=== PATIENT | female | born 1985 | race African-American/Black ===

== ENCOUNTER 2020-08-28 12:46 | Outpatient (CLI) | payer MEDICAID, SELFPAY ==
--- NOTE | ~2020-08-28 | US_ITS ---
EXAMINATION: US breast BI limited HISTORY: Bilateral nipple discharge and palpable lump in the lower inner right breast with subjectiv e change with menstrual cycle TECHNIQUE: Limited bilateral breast ultrasound was performed. FINDINGS: No discrete mass is identified in the right breast at the site of the palpable abnormality. Targeted ultrasound of the subareolar breasts does not demonstrate any correlate for the patient's b ilateral nipple discharge. IMPRESSION: 1. No definite mass identified for the patient's reported right breast lump. Recommend continued clin ical follow-up and targeted ultrasound in six months with scan of the corresponding region in the lef t breast as well to evaluate for any asymmetry. 2. No specific sonographic correlate is identified for the patient's nipple discharge. Further evalua tion at this time should be based on clinical assessment. Continued follow-up physical examination is recommended. BI-RADS category 3, probably benign findings. Reviewed, dictated and finalized at location A. IMPRESSION: 1. No definite mass identified for the patient's reported right breast lump. Re commend continued clinical follow-up and targeted ultrasound in six months with scan of the corresponding region in the left breast as well to evaluate for an y asymmetry. 2. No specific sonographic correlate is identified for the patient's nipple dis charge. Further evaluation at this time should be based on clinical assessment. Continued follow-up physical examination is recommended. BI-RADS category 3, probably benign findings.
== END 2020-08-28 12:47 | disposition home or self-care (01) ==
PROVIDERS: PCP Internal Medicine; Visit Provider Obstetrics & Gynecology Gynecology
DX: N63.14 Unspecified lump in the right breast, lower inner quadrant (principal); N64.52 Nipple discharge
CPT/HCPCS: 76642

== ENCOUNTER 2021-01-21 11:26 | Outpatient (CLI) | payer OTHER, SELFPAY ==
[2021-01-21 13:25] LABS: Free T4 Free Thyroxine 1.16 ng/mL (0.78-2.19)
[2021-01-24 08:00] LABS: Prolactin 6.1 ng/mL (***)
== END 2021-01-21 11:27 | disposition home or self-care (01) ==
PROVIDERS: PCP Internal Medicine; Visit Provider Obstetrics & Gynecology
DX: N64.52 Nipple discharge (principal)
CPT/HCPCS: 36415; 84146; 84439; 84443

== ENCOUNTER 2021-05-16 16:48 | Emergency (ER) | payer OTHER, SELFPAY ==
[2021-05-16 16:57] VITALS: BP 134/80; PULSE 95; RESP 16; TEMP 36.7; O2SAT 100
--- NOTE | 2021-05-16 16:59 | ED.WOUNDLAC ---
HPI - Wound/Laceration General Chief Complaint: Wound/Laceration Stated Complaint: Laceration on finger Time Seen by Provider: 05/16/21 17:06 Source: patient and RN notes reviewed Mode of arrival: ambulatory Limitations: no limitations History of Present Illness HPI narrative: 36-year-old female presents with multiple concerns. She reports she has a cut to the third digit of the left hand near the fingernail that she sustained this morning on a fan in her room. In a separate complaint she reports foul-smelling cloudy urine and is concern for urinary tract infection. She reports she is currently being treated for bacterial vaginosis with Flagyl. She reports pain to the distal tip of the third digit of left hand, denies redness, bruising, swelling, musculoskeletal pain. She denies nausea, vomiting, back pain, urine frequency, urine urgency, dysuria, fever. Related Data Home Medications Medication Instructions Recorded Confirmed Flagyl 05/16/21 Allergies Allergy/AdvReac Type Severity Reaction Status Date / Time No Known Allergies Allergy Unknown Verified 01/21/21 11:05 Review of Systems Review of Systems: Narrative: CONSTITUTIONAL: Denies malaise, chills, sweats, or fever. CARDIOVASCULAR: Denies chest pain, palpitations, or edema. RESPIRATORY: Denies cough or dyspnea. GASTROINTESTINAL: Denies abdominal pain, nausea, vomiting, diarrhea GENITOURINARY: Denies dysuria frequency, urgency or hematuria. Reports foul-smelling dark-colored cloudy urine SKIN: Reports laceration to the distal third digit of the left hand MUSCULOSKELETAL: Denies back pain or myalgia. NEUROLOGIC: Denies numbness, weakness All systems reviewed & are unremarkable except as noted in HPI and below PMFSH Past Medical History Medical History Anxiety Depression Migraines Family History Family History Mother Hypertension Father Hypertension Social History Social History Smoking status: Current some day smoker Alcohol intake: current Drinks per week: 3 Comments At time of signature, agree with nursing past medical, surgical, social and family history. There is no relevant family history pertinent to the presenting complaint Exam Narrative: Exam Narrative: GENERAL: Well-appearing, well-nourished, and in no acute distress. HEAD: Normocephalic EYES: PERRLA, conjunctivae clear NECK: Supple. CHEST: Speaks in full sentences. No respiratory distress. HEART: Regular rate and rhythm. Normal and equal peripheral pulses. EXTREMITIES: Third digit of left hand has normal strength and sensation. 5/5 strength with digit flexion, extension. Range of motion normal. No clubbing, cyanosis, or edema noted. Normal digital cascade with flexion of fingers, median, ulnar and radial nerve intact. Normal sensation of each side of finger. Can perform 'okay' sign, 'cross over finger test of index and middle fingers' and 'thumbs up' sign. No scissoring. Normal thumb opposition. Good capillary refill and radial pulse. Distal capillary refill less than 3 seconds. SKIN: Warn, dry, intact, pink. No rash. 1 cm superficial laceration noted distal tip of the digit of left hand not involving the nail bed, no active bleeding, no surrounding erythema, induration, drainage NEURO: Alert and oriented x3. PSYCH: Normal mood and affect Course Course Emergency Course: Patient is aware of diagnosis, understands and agrees to treatment plan. Anticipatory guidance given. Patient agrees to follow-up as directed and is aware of reasons to seek care at the emergency department. Portions of this record may have been created with voice recognition software Vital Signs Vital signs: Vital Signs Temperature 98.1 F 05/16/21 16:57 Pulse Rate 95 05/16/21 16:57 Respiratory Rate 16 05/16/21 16:57 Blood Pressure
--- NOTE | 2021-05-16 17:16 | PC.NURSE ---
in br to obtain ua spec.
== END 2021-05-16 17:30 | disposition home or self-care (01) ==
PROVIDERS: Emergency Provider Nurse Practitioner
DX: S61.213A Laceration without foreign body of left middle finger without damage to nail, initial encounter (principal); W45.8XXA Other foreign body or object entering through skin, initial encounter; R82.90 Unspecified abnormal findings in urine; F17.200 Nicotine dependence, unspecified, uncomplicated
CPT/HCPCS: 12001; 81003; 87077; 87086; 87088; 87186; 99213; G0463

== ENCOUNTER 2021-08-05 13:19 | Emergency (ER) | payer OTHER, SELFPAY ==
[2021-08-05 13:53] VITALS: BP 119/79; PULSE 101; RESP 18; TEMP 36.9; O2SAT 100
--- NOTE | 2021-08-05 15:18 | ED.URI ---
HPI - URI/Sore Throat General Chief Complaint: Upper Respiratory Infection Stated Complaint: neck pain/sneezing/left eye pain Time Seen by Provider: 08/05/21 15:18 Source: patient and RN notes reviewed Mode of arrival: ambulatory Limitations: no limitations History of Present Illness HPI Narrative: 36-year-old female presents with 2-day history of body aches, rhinorrhea, eyes watering, sinus congestion, sinus pressure, eye pressure, diarrhea, hot and cold flashes, upset stomach. She denies known sick contacts, has not been vaccinated for Covid. She denies [id number] intervention. She denies cough or shortness of breath. MD elicited complaint: rhinorrhea Related Data Home Medications Medication Instructions Recorded Confirmed multivitamin 1 tablet PO DAILY 07/15/21 Allergies Allergy/AdvReac Type Severity Reaction Status Date / Time No Known Allergies Allergy Unknown Verified 08/05/21 14:39 Review of Systems Review of Systems: CONSTITUTIONAL: Reports malaise, chills, sweats, or fever. EYES: Denies visual changes, redness. Reports watery discharge. ENT: Reports rhinorrhea, congestion, sinus pain. Denies otalgia and sore throat. CARDIOVASCULAR: Denies chest pain, palpitations, or edema. RESPIRATORY: Denies cough or dyspnea. GASTROINTESTINAL: Denies abdominal pain, nausea, vomiting. Reports upset stomach and diarrhea SKIN: Denies rash or itching. MUSCULOSKELETAL: Reports myalgia. NEUROLOGIC: Reports headache. All systems reviewed & are unremarkable except as noted in HPI and below PMFSH Past Medical History Medical History Anxiety Depression Migraines Family History Family History Mother Hypertension Father Hypertension Social History Social History Smoking status: Current some day smoker Alcohol intake: current Drinks per week: 3 Comments At time of signature, agree with nursing past medical, surgical, social and family history. There is no relevant family history pertinent to the presenting complaint Exam Narrative: GENERAL: <del>Nontoxic</del>-appearing, well-nourished, and in no acute distress. HEAD: Normocephalic EYES: PERRLA, conjunctivae clear ENT: Nares clear, clear discharge. Mucous membranes moist. TM pearly keen with dull light reflex bilaterally; no tragal tenderness. Oropharynx not erythematous without lesions. Tonsils not enlarged and without exudate, no drooling, no hoarseness, no trismus, uvula midline. NECK: Supple. No lymphadenopathy CHEST: Clear to auscultation, breath sounds equal. No wheezing, rhonchi, rales, or stridor. No respiratory distress, speaks in full sentences. HEART: Regular rate and rhythm. No murmur heard. SKIN: Warm, dry, no rash. NEURO: Alert and oriented x3. PSYCH: Normal mood and affect Course Course Emergency Course: Patient is aware of diagnosis, understands and agrees to treatment plan. Anticipatory guidance given. Patient agrees to follow-up as directed and is aware of reasons to seek care at the emergency department. Portions of this record may have been created with voice recognition software Vital Signs Vital signs: Vital Signs Temperature 98.4 F 08/05/21 13:53 Pulse Rate 101 H 08/05/21 13:53 Respiratory Rate 18 08/05/21 13:53 Blood Pressure 119/79 08/05/21 13:53 Pulse Oximetry 100 08/05/21 13:53 Temperature 98.4 F 08/05/21 13:53 Pulse Rate 101 H 08/05/21 13:53 Respiratory Rate 18 08/05/21 13:53 Blood Pressure 119/79 08/05/21 13:53 Pulse Oximetry 100 08/05/21 13:53 Reviewed. MDM - URI/Sore Throat MDM Narrative Medical decision making narrative: Differential diagnosis considered: Guillen virus, strep pharyngitis, allergic rhinitis, upper respiratory tract infection, sinusitis, rhinosinusitis, nasopharyngitis. viral pharyngitis, otitis me
[2021-08-06 20:25] LABS: SARS-CoV-2 RNA PCR Negative
== END 2021-08-05 15:30 | disposition home or self-care (01) ==
PROVIDERS: Emergency Provider Nurse Practitioner
DX: B34.9 Viral infection, unspecified (principal); Z20.822 Contact with and (suspected) exposure to COVID-19; F17.200 Nicotine dependence, unspecified, uncomplicated
CPT/HCPCS: 87426; 99213; C9803; G0463; U0003; U0005

== ENCOUNTER → 2021-11-12 12:41 | Outpatient (CLI) | payer OTHER, SELFPAY ==
--- NOTE | ~2021-11-12 | XR_ITS ---
EXAMINATION: XR chest 2V 11/12/2021 13:03 INDICATION: Dyspnea. PROCEDURE: 2 view chest COMPARISON: 01/09/2019 FINDINGS: The lungs are clear. The cardiomediastinal silhouette is within normal limits. There are no pleural effusions. There is no pneumothorax suspected. IMPRESSION: 1: NO ACUTE CARDIOPULMONARY DISEASE. Reviewed, dictated and finalized at location A. ATION RESEARCH ANALYST
== END ==
PROVIDERS: PCP Emergency Medicine; Visit Provider Emergency Medicine
DX: F17.290 Nicotine dependence, other tobacco product, uncomplicated (principal)
CPT/HCPCS: 71046

== ENCOUNTER 2021-11-24 09:25 | Emergency (ER) | payer OTHER, SELFPAY ==
[2021-11-24 09:32] VITALS: BP 137/85; PULSE 93; RESP 16; TEMP 38.2; O2SAT 100
--- NOTE | 2021-11-24 10:03 | ED.URI ---
HPI - URI/Sore Throat General Chief Complaint: Upper Respiratory Infection Stated Complaint: Flu Time Seen by Provider: 11/24/21 10:03 Source: patient Mode of arrival: ambulatory Limitations: no limitations History of Present Illness HPI Narrative: Cynthia Paz is a 36 yo female with flu-like symptoms x 24 hours. has a low grade fever, muscle aches and pain since yesterday. Had a positive home Covid test last night which she neglected to tell staff or nurse Related Data Allergies Allergy/AdvReac Type Severity Reaction Status Date / Time No Known Allergies Allergy Unknown Verified 11/24/21 10:01 Review of Systems Review of Systems: CONSTITUTIONAL: Denies fever, chills, sweats. EYES: Denies visual changes, redness, discharge. ENT: Denies rhinorrhea, has congestion, sore throat, otalgia. CARDIOVASCULAR: Denies chest pain, palpitations, edema. RESPIRATORY: Denies dyspnea, wheezing, cough GASTROINTESTINAL: Denies abdominal pain, nausea, vomiting, diarrhea. GENITOURINARY: Denies dysuria, hematuria, abnormal discharge SKIN: Denies rash or itching. NEUROLOGIC: Denies numbness, or focal weakness. PSYCHIATRIC: Denies anxiety or depression. Primary complaint is muscle aches and just feeling poorly PMFSH Past Medical History Medical History Anxiety Depression Migraines Vitamin D deficiency Family History Family History Mother Hypertension Father Hypertension Social History Social History Smoking status: Former smoker Alcohol intake: current Drinks per week: 3 Comments At time of signature, I agree with nursing past medical, surgical, social and family history. There is no relevant family history pertinent to the presenting complaint. Exam Narrative: GENERAL: This is a well-nourished, well-developed patient, in mild distress. HEAD: normocephalic, atraumatic. EYES: . Sclera clear/white. Vision is grossly intact. EARS: External ears normal, auditory canals clear and without drainage, TMs normal without perforation. Hearing grossly intact. NOSE: External nose normal without nasal discharge, nares without redness, no rhinorrhea. THROAT: Mucous membranes moist, posterior pharynx clear drainage NECK: Neck supple, non-tender CARDIOVASCULAR: Regular rate and rhythm without murmurs, gallops, or rubs. RESPIRATORY: Clear to auscultation. Breath sounds equal bilaterally. No wheezes, rales, or rhonchi. GASTROINTESTINAL: Abdomen soft, non-tender, SKIN: warm, intact with no suspicious lesions or rash, good texture and turgor. NEURO: awake, alert, and oriented to person, place and time. There were no obvious focal neurologic abnormalities. Steady gait EXTREMITIES: Normal range of motion. BACK: Nontender without deformity Course Course Emergency Course: Patient is complaining of muscle aches and not feeling well since yesterday during the interview she states she had a positive Covid test last night Flu test is negative Patient is low-grade fever-discussed rotation of Tylenol and ibuprofen for pain and fever; denies cough; denies difficulty swallowing denies ear pain-states the reason she did not tell me when she had a Covid test was because she went to make sure it was real Vital Signs Vital signs: Vital Signs Temperature 100.7 F H 11/24/21 09:32 Pulse Rate 93 11/24/21 09:32 Respiratory Rate 16 11/24/21 09:32 Blood Pressure 137/85 11/24/21 09:32 Pulse Oximetry 100 11/24/21 09:32 Temperature 100.7 F H 11/24/21 09:32 Pulse Rate 93 11/24/21 09:32 Respiratory Rate 16 11/24/21 09:32 Blood Pressure 137/85 11/24/21 09:32 Pulse Oximetry 100 11/24/21 09:32 MDM - URI/Sore Throat Differential Diagnosis Differential diagnosis: Likely upper respiratory infection, influenza and pharyngitis Lab Data Labs: Influenza A Screen
== END 2021-11-24 10:20 | disposition home or self-care (01) ==
PROVIDERS: Emergency Provider Nurse Practitioner
DX: J06.9 Acute upper respiratory infection, unspecified (principal); Z20.822 Contact with and (suspected) exposure to COVID-19; Z87.891 Personal history of nicotine dependence
CPT/HCPCS: 87804; 99213; G0463

== ENCOUNTER → 2022-04-08 09:22 | Outpatient (CLI) | payer OTHER, SELFPAY ==
--- NOTE | ~2022-04-08 | XR_ITS ---
XR foot LT min 3V DATE: 04/08/2022 09:42 INDICATION: Dropped heavy object on the left first and second toes. Pain. TECHNIQUE: 4 views COMPARISON: 04/19/2013 left foot FINDINGS: There is hallux valgus and bunion deformity. 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 No fracture or dislocation, periosteal reaction or bone destruction. IMPRESSION: Hallux valgus and bunion deformity Minimal osteophyte is at first metatarsophalangeal joint Reviewed, dictated and finalized at location B.
== END ==
PROVIDERS: PCP Emergency Medicine; Visit Provider Emergency Medicine
DX: S99.922A Unspecified injury of left foot, initial encounter (principal); X58.XXXA Exposure to other specified factors, initial encounter; M20.12 Hallux valgus (acquired), left foot
CPT/HCPCS: 73630

== ENCOUNTER → 2023-02-24 15:51 | Outpatient (CLI) | payer OTHER, SELFPAY ==
--- NOTE | ~2023-02-24 | XR_ITS ---
XR wrist RT min 3V DATE: 02/24/2023 16:36 INDICATION: Injury yesterday. Lateral wrist and hand pain TECHNIQUE: 4 views COMPARISON: None FINDINGS: No fracture or dislocation, periosteal reaction or bone destruction. Joint spaces are prese rved. No erosive change or chondrocalcinosis. IMPRESSION: Negative Reviewed, dictated and finalized at location B. IMPRESSION: Negative
--- NOTE | ~2023-02-24 | XR_ITS ---
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 No fracture or dislocation, periosteal reaction or bone destruction or significant joint space narrow ing, erosive change or chondrocalcinosis. IMPRESSION: No fracture or dislocation Reviewed, dictated and finalized at location B. IMPRESSION: No fracture or dislocation
--- NOTE | ~2023-02-24 | XR_ITS ---
XR wrist LT min 3V DATE: 02/24/2023 16:36 INDICATION: Injury yesterday. 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 No fracture or dislocation, periosteal reaction or bone destruction, joint space narrowing, erosive c hange or chondrocalcinosis. IMPRESSION: No fracture or dislocation Reviewed, dictated and finalized at location B. IMPRESSION: No fracture or dislocation
--- NOTE | ~2023-02-24 | XR_ITS ---
XR hand RT min 3V DATE: 02/24/2023 16:36 INDICATION: Bilateral wrist and hand pain following injury yesterday TECHNIQUE: 3 views of right hand COMPARISON: None FINDINGS: No fracture or dislocation, periosteal reaction or bone destruction, joint space narrowing, erosive change or chondrocalcinosis. IMPRESSION: Negative Reviewed, dictated and finalized at location B. IMPRESSION: Negative
== END ==
PROVIDERS: PCP Emergency Medicine; Visit Provider Emergency Medicine
DX: M79.641 Pain in right hand (principal); M79.642 Pain in left hand; M25.531 Pain in right wrist; M25.532 Pain in left wrist
CPT/HCPCS: 73110; 73130

== ENCOUNTER 2023-11-24 13:15 | Emergency (ER) | payer OTHER, SELFPAY ==
[2023-11-24 14:08] VITALS: BP 157/100; PULSE 79; RESP 14; TEMP 37.7; O2SAT 98
--- NOTE | 2023-11-24 14:27 | ED.URI ---
HPI - URI/Sore Throat General Chief Complaint: Upper Respiratory Infection Stated Complaint: Bodyaches/Cough Time Seen by Provider: 11/24/23 14:33 Source: patient and RN notes reviewed Mode of arrival: ambulatory Limitations: no limitations History of Present Illness HPI Narrative: 38-year-old female presents for 2 day history of body aches, cough with chest discomfort, sore throat, hoarse voice and painful swallowing. 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 She denies taking any [id number] medications for her symptoms. MD elicited complaint: cough Related Data Allergies Allergy/AdvReac Type Severity Reaction Status Date / Time No Known Allergies Allergy Unknown Verified 11/24/23 14:13 Review of Systems Review of Systems: CONSTITUTIONAL: Reports malaise EYES: Denies visual changes, redness, or discharge. ENT: Reports rhinorrhea, congestion, and sore throat. CARDIOVASCULAR: Denies chest pain, palpitations, or edema. RESPIRATORY: Reports cough, chest discomfort with coughing. Denies dyspnea. GASTROINTESTINAL: Denies abdominal pain, nausea, vomiting, diarrhea SKIN: Denies rash or itching. MUSCULOSKELETAL: Reports myalgia. NEUROLOGIC: Denies headache. All systems reviewed & are unremarkable except as noted in HPI and below PMFSH Past Medical History Medical History Anxiety Depression Migraines Vitamin D deficiency Family History Family History Mother Hypertension Father Hypertension Social History Social History Smoking status: Former smoker Alcohol intake: current Drinks per week: 3 Comments At time of signature, agree with nursing past medical, surgical, social and family history. There is no relevant family history pertinent to the presenting complaint Exam Narrative: GENERAL: Nontoxic-appearing, well-nourished, and in no acute distress. HEAD: Normocephalic EYES: PERRLA, conjunctivae clear ENT: Nares clear, turbinates edematous and erythematous, clear discharge. Mucous membranes moist. TM pearly keen with sharp light reflex bilaterally; no tragal tenderness. Oropharynx not erythematous without lesions. Tonsils not enlarged and without exudate, no drooling, no hoarseness, no trismus, uvula midline. NECK: Supple. No lymphadenopathy CHEST: Scattered wheeze throughout, breath sounds equal. No rhonchi, rales, or stridor. No respiratory distress, speaks in full sentences. HEART: Regular rate and rhythm. No murmur heard. SKIN: Warm, dry, no rash. NEURO: Alert and oriented x3. PSYCH: Normal mood and affect Course Course Emergency Course: Patient is aware of diagnosis, understands and agrees to treatment plan. Anticipatory guidance given. Patient agrees to follow-up as directed and is aware of reasons to seek care at the emergency department. Portions of this record may have been created with voice recognition software Level of Care: Express Care Visit Vital Signs Vital signs: Vital Signs Temperature 100 F H 11/24/23 14:08 Pulse Rate 79 11/24/23 14:08 Respiratory Rate 14 11/24/23 14:08 Blood Pressure 157/100 H 11/24/23 14:08 Pulse Oximetry 98 11/24/23 14:08 Oxygen Delivery Room Air 11/24/23 14:08 Temperature 100 F H 11/24/23 14:08 Pulse Rate 79 11/24/23 14:08 Respiratory Rate 14 11/24/23 14:08 Blood Pressure 157/100 H 11/24/23 14:08 Pulse Oximetry 98 11/24/23 14:08 Oxygen Delivery Room Air 11/24/23 14:08 Reviewed. MDM - URI/Sore Throat MDM Narrative Medical decision making narrative: Differential diagnosis considered: Guillen virus, strep pharyngitis, allergic rhinitis, upper respiratory tract infection, sinusitis, rhinosinusitis, nasopharyngitis. viral pharyngitis, otitis media, otitis externa, pneumonia, bronchitis, viral cough syndrome, viral syndrome, and
== END 2023-11-24 14:50 | disposition home or self-care (01) ==
PROVIDERS: Emergency Provider Nurse Practitioner; PCP Emergency Medicine
DX: B34.9 Viral infection, unspecified (principal); R06.2 Wheezing; Z20.822 Contact with and (suspected) exposure to COVID-19; Z87.891 Personal history of nicotine dependence
CPT/HCPCS: 87081; 87426; 87804; 87880; 99213; C9803; G0463